=== PATIENT | male | born 1965 | race American Indian/Alaskan Native ===

== ENCOUNTER 2022-01-19 16:26 | Inpatient (IN) | payer BC ==
[2022-01-19] MEDS ORDERED: cloNIDine 0.1 MG TAB PO ONE (17:18)
[2022-01-19 18:02] LABS: Basophils # (Auto) 0.1 K/mm3 (0.0-0.1); Basophils % (Auto) 1.3 % (0.0-1.8); Eosinophils # (Auto) 0.1 K/mm3 (0.0-0.4); Eosinophils % (Auto) 0.7 % (0.0-4.3); Hematocrit 39.3 % (35.5-45.6); Hemoglobin 13.2 gm/dl (11.8-15.2); Lymphocytes # (Auto) 1.3 K/mm3 (1.2-5.4); Lymphocytes % (Auto) 17.2 % (13.4-35.0); Mean Corpuscular HGB Conc 34 % (32-34); Mean Corpuscular Volume 83 fl (84-94); Monocytes # (Auto) 0.7 K/mm3 (0.0-0.8); Monocytes % (Auto) 8.5 % (0.0-7.3); Platelet Count 321 K/mm3 (140-440); Red Blood Count 4.75 M/mm3 (3.65-5.03); Red Cell Distribution Width 15.9 % (13.2-15.2)
[2022-01-19 19:34] LABS: Alanine Aminotransferase 22 units/L (7-56); Albumin 4.6 g/dL (3.9-5); BUN/Creatinine Ratio 19; Blood Urea Nitrogen 21 mg/dL (9-20); Calcium 9.9 mg/dL (8.4-10.2); Hemolysis Index 6
[2022-01-19] MEDS ORDERED: hydrALAZINE 20 MG/1 ML INJ IV ONE (21:21)
--- NOTE | 2022-01-19 21:27 | Emergency Department Report ---
ED General Adult HPI - General Chief complaint: High BP Stated complaint: HBP Time Seen by Provider: 01/19/22 21:20 Source: patient Mode of arrival: Ambulatory Limitations: No Limitations - History of Present Illness Initial comments: Patient is a 56-year-old male presenting to ED with complaint of hypertension. States he went to an outside clinic today to have sutures removed and was noted to have severely elevated blood pressure. He denies any symptoms. Denies history of hypertension. - Related Data Allergies Allergy/AdvReac Type Severity Reaction Status Date / Time No Known Allergies Allergy Verified 01/19/22 16:57 ED Review of Systems ROS: Stated complaint: HBP Other details as noted in HPI Constitutional: denies: chills, fever Respiratory: denies: cough, shortness of breath, wheezing Cardiovascular: denies: chest pain, palpitations Gastrointestinal: denies: abdominal pain, nausea, diarrhea Musculoskeletal: denies: back pain, joint swelling, arthralgia Skin: denies: rash, lesions Neurological: denies: headache, weakness, paresthesias Psychiatric: denies: anxiety, depression ED Past Medical Hx - Past Medical History Previous Medical History?: No - Surgical History Past Surgical History?: No ED Physical Exam - General Limitations: No Limitations General appearance: alert, in no apparent distress - Head Head exam: Present: atraumatic, normocephalic - Eye Eye exam: Present: normal appearance - Respiratory Respiratory exam: Present: normal lung sounds bilaterally. Absent: respiratory distress - Cardiovascular Cardiovascular Exam: Present: regular rate, normal rhythm, normal heart sounds. Absent: systolic murmur, diastolic murmur, rubs, gallop - GI/Abdominal GI/Abdominal exam: Present: soft. Absent: distended, tenderness - Rectal Rectal exam: Present: deferred - Neurological Exam Neurological exam: Present: alert, oriented X3 - Psychiatric Psychiatric exam: Present: normal affect, normal mood - Skin Skin exam: Present: warm, dry, intact, normal color ED Course Vital Signs 01/19/22 01/19/22 01/19/22 16:53 21:37 21:49 Temperature 98.7 F 98.5 F Pulse Rate 102 H 93 H 83 Respiratory 18 17 Rate Blood Pressure 243/120 236/123 Blood Pressure 236/123 [Right] O2 Sat by Pulse 96 97 Oximetry 01/19/22 01/19/22 01/19/22 22:19 22:25 23:04 Temperature Pulse Rate 86 91 H Respiratory 19 Rate Blood Pressure 233/126 Blood Pressure 236/119 [Right] O2 Sat by Pulse 96 96 Oximetry 01/19/22 23:58 Temperature Pulse Rate 86 Respiratory 20 Rate Blood Pressure Blood Pressure 231/139 [Right] O2 Sat by Pulse 96 Oximetry ED Medical Decision Making - Lab Data Result diagrams: 01/19/22 17:23 01/19/22 17:23 - EKG Data -: EKG Interpreted by Me EKG shows normal: sinus rhythm, axis, intervals - EKG Data Interpretation: LVH, other (Early repolarization) - Medical Decision Making Labs grossly unremarkable. Patient given oral clonidine, followed by IV hydralazine and later IV labetalol with no significant change in blood pressure. Cardene drip ordered. Will admit to hospitalist for hypertensive urgency. Critical care attestation.: If time is entered above; I have spent that time in minutes in the direct care of this critically ill patient, excluding procedure time. ED Disposition Clinical Impression: Asymptomatic hypertensive urgency Disposition: ADMITTED INPATIENT Is pt being admited?: Yes Condition: Stable
[2022-01-20] MEDS: niCARdipine 50 MG in SODIUM CHLORIDE 0.9% 250ML 230 ML IV SCH ×2 (00:53→09:08)
[2022-01-20] MEDS ORDERED: MORPHINE 4 MG/1 ML INJ IV PRN (02:10)
[2022-01-20] MEDS ORDERED: MORPHINE 2 MG/1 ML INJ IV PRN (02:10)
[2022-01-20] MEDS ORDERED: ONDANSETRON 4 MG/2 ML INJ IV PRN (02:10)
[2022-01-20] MEDS ORDERED: ACETAMINOPHEN 325 MG TAB PO PRN (02:10)
[2022-01-20] MEDS ORDERED: ALBUTEROL 2.5 MG/3 ML NEBU IH PRN (02:10)
--- NOTE | 2022-01-20 02:16 | History and Physical Report ---
History of Present Illness Date of examination: 01/20/22 Date of admission: 01/20/22 Chief complaint: High blood pressure History of present illness: 56-year-old male with history of hypertension was brought to the emergency room because high blood pressure. Patient states he went to an outside clinic today to have sutures removed and was noted to have severely elevated blood pressure. He denies any symptoms. Patient denied any chest pain no shortness of breath no other complaints. In the emergency room patient is found to have blood pressure of 197/115.Patient given oral clonidine, followed by IV hydralazine and later IV labetalol with no significant change in blood pressure. Cardene drip ordered. We will admit the patient to the ICU overnight. We consult critical care evaluation and order echocardiogram Past History Past Medical History: hypertension Past Surgical History: No surgical history Social history: no significant social history Family history: hypertension Medications and Allergies Allergies Allergy/AdvReac Type Severity Reaction Status Date / Time No Known Allergies Allergy Verified 01/19/22 16:57 Active Meds: Active Medications Nicardipine HCl 50 mg/ Sodium (Chloride) 250 mls @ 25 mls/hr IV TITR ALLY; Protocol Last Admin: 01/20/22 00:53 Dose: 5 mg/hr, 25 mls/hr Review of Systems All systems: negative Constitutional: other (High blood pressure) Exam - Constitutional Vitals: Temp Pulse Resp BP Pulse Ox 98.5 F 73 18 174/95 98 01/19/22 21:37 01/20/22 01:46 01/20/22 01:46 01/20/22 01:46 01/20/22 01:46 General appearance: Present: no acute distress, well-nourished - EENT Eyes: Present: PERRL ENT: hearing intact, clear oral mucosa - Neck Neck: Present: supple, normal ROM - Respiratory Respiratory effort: normal Respiratory: bilateral: CTA - Cardiovascular Heart Sounds: Present: S1 & S2. Absent: rub, click - Extremities Extremities: pulses symmetrical, No edema Peripheral Pulses: within normal limits - Abdominal General gastrointestinal: Present: soft, non-tender, non-distended, normal bowel sounds Male genitourinary: Present: normal - Integumentary Integumentary: Present: clear, warm, dry - Musculoskeletal Musculoskeletal: gait normal, strength equal bilaterally - Psychiatric Psychiatric: appropriate mood/affect, intact judgment & insight - Neurologic Neurologic: CNII-XII intact, moves all extremities HEART Score - HEART Score Troponin: Troponin T < 0.010 ng/mL (0.00-0.029) 01/19/22 17: Results - Labs CBC & Chem 7: 01/19/22 17:23 01/19/22 17: Labs: Laboratory Last Values WBC 7.8 K/mm3 (4.5-11.0) 01/19/22 17: RBC 4.75 M/mm3 (3.65-5.03) 01/19/22 17: Hgb 13.2 gm/dl (11.8-15.2) 01/19/22: Hct 39.3 % (35.5-45.6) 01/19/22: MCV 83 fl (84-94) L 01/19/22 17: MCH 28 pg (28-32) 01/19/22: MCHC 34 % (32-34) 01/19/22: RDW 15.9 % (13.2-15.2) H 01/19/22 17: Plt Count 321 K/mm3 (140-440) 01/19/22 17: Lymph % (Auto) 17.2 % (13.4-35.0) 01/19/22: [place] % (Auto) 8.5 % (0.0-7.3) H 01/19/22: Eos % (Auto) 0.7 % (0.0-4.3) 01/19/22: Baso % (Auto) 1.3 % (0.0-1.8) 01/19/22 17: Lymph # (Auto) 1.3 K/mm3 (1.2-5.4) 01/19/22 17: [place] # (Auto) 0.7 K/mm3 (0.0-0.8) 01/19/22: Eos # (Auto) 0.1 K/mm3 (0.0-0.4) 01/19/22 17: Baso # (Auto) 0.1 K/mm3 (0.0-0.1) 01/19/22: Seg Neutrophils % 72.3 % (40.0-70.0) H 01/19/22 17:23 Seg Neutrophils # 5.6 K/mm3 (1.8-7.7) 01/19/22 17:23 Sodium 138 mmol/L (137-145) 01/19/22 17:23 Potassium 4.5 mmol/L (3.6-5.0) 01/19/22 17:23 Chloride 102.4 mmol/L (98-107) 01/19/22 17:23 Carbon Dioxide 23 mmol/L (22-30) 01/19/22 17:23 Anion Gap 17 mmol/L 01/19/22 17:23 BUN 21 mg/dL (9-20) H 01/19/22 17:23 Creatinine 1.1 mg/dL (0.8-1.3) 01/19/22 17:23 Estimated GFR > 60 ml/min 01/19/22 17:23 BUN/Creatinine Ratio 19 % 01/19/22 17:23 Glucose 167 mg/dL (75-100) H 01/19/22 17:23 Calcium 9.9 mg/dL (8.4-10.2) 01/19/22 17:23 Total Bilirubin 0.20 mg/dL (0.1-1.2) 01/19/22 17:23 AST 19 units/L (5-40) 01/19/22 17:23 ALT 22 units/L (7-56) 01/19/22 17:23 Alkaline Phosphatase 160 units/L (35-129) H 01/19/22 17:23 Troponin T < 0.010 ng/mL (0.00-0.029) 01/19/22 17:23 Total Protein 7.2 g/dL (6.3-8.2) 01/19/22 17:23 Albumin 4.6 g/dL (3.9-5) 01/19/22 17:23 Albumin/Globulin Ratio 1.8 % 01/19/22 17:23 Assessment and Plan VTE prophylaxis?: Mechanical Plan of care discussed with patient/family: Yes - Patient Problems (1) Asymptomatic hypertensive urgency Status: Acute Plan to address problem: Admit the patient to ICU. Cardiac diet.Patient given oral clonidine, followed by IV hydralazine and later IV labetalol with no significant change in blood pressure. Cardene drip ordered. Echocardiogram. Critical care evaluation. Consult cardiology if needed (2) Obesity Status: Acute Plan to address problem: We counseled the patient regarding weight reduction. We will monitor the patient closely (3) DVT prophylaxis Status: Acute Plan to address problem: SCD for DVT prophylaxis. Pepcid 20 mg p.o. twice daily for GI prophylaxis. Patient is a full code
[2022-01-20] MEDS ORDERED: IPRATROPIUM/ALBUTEROL SULFATE 3 ML AMPUL.NEB IH SCH (08:00)
[2022-01-20] MEDS: hydroCHLOROthiazide 25 MG TAB PO SCH (09:21)
[2022-01-20] MEDS: FAMOTIDINE 20 MG TAB PO SCH ×2 (09:21→21:15)
[2022-01-20] MEDS: amLODIPine 10 MG TAB PO SCH (09:21)
--- NOTE | 2022-01-20 11:18 | Consultation ---
History of Present Illness - Reason for Consult Consult date: 01/20/22 - History of Present Illness 56 y/o, obese male, admitted last evening with hypertensive urgency. patient had stitches to a digit and went to get those removed. When they did, they checked his bp and it was elevated so they asked him to come to the hospital. He denies any headache, chest pain, blurred vision, nausea or vomiting. He was unaware that he had elevated bp. Remainder of the review is negative. Past History Past Medical History: hypertension Past Surgical History: No surgical history Social history: no significant social history Family history: hypertension Medications and Allergies Allergies Allergy/AdvReac Type Severity Reaction Status Date / Time No Known Allergies Allergy Verified 01/19/22 16:57 Active Meds: Active Medications Acetaminophen (Acetaminophen 325 Mg Tab) 650 mg PO Q4H PRN PRN Reason: Pain MILD(1-3)/Fever >100.5/[place] Amlodipine Besylate (Amlodipine 10 Mg Tab) 10 mg PO QDAY [facility] Last Admin: 01/20/22 09:21 Dose: 10 mg Clonidine HCl (Clonidine 0.1 Mg Tab) 0.1 mg PO Q12HR ALLY Famotidine (Famotidine 20 Mg Tab) 20 mg PO BID [facility] Last Admin: 01/20/22 09:21 Dose: 20 mg Hydralazine HCl (Hydralazine 20 Mg/1 Ml Inj) 20 mg IV Q4HR PRN PRN Reason: Hypertension Hydrochlorothiazide (Hydrochlorothiazide 25 Mg Tab) 25 mg PO QDAY [facility] Last Admin: 01/20/22 09:21 Dose: 25 mg Nicardipine HCl 50 mg/ Sodium (Chloride) 250 mls @ 25 mls/hr IV TITR ALLY; Protocol Last Titration: 01/20/22 10:06 Dose: 7.5 mg/hr, 37.5 mls/hr Ondansetron HCl (Ondansetron 4 Mg/2 Ml Inj) 4 mg IV Q8H PRN PRN Reason: Nausea And Vomiting Sodium Chloride (Sodium Chloride 0.9% 10 Ml Flush Syringe) 10 ml IV BID [facility] Last Admin: 01/20/22 09:22 Dose: 10 ml Sodium Chloride (Sodium Chloride 0.9% 10 Ml Flush Syringe) 10 ml IV PRN PRN PRN Reason: LINE FLUSH Review of Systems All systems: negative Exam - Constitutional Vitals: Temp Pulse Resp BP Pulse Ox 97.8 F 77 17 163/86 96 01/20/22 08:38 01/20/22 10:44 01/20/22 10:44 01/20/22 10:44 01/20/22 10:44 General appearance: Present: no acute distress, well-nourished, obese - EENT Eyes: Present: PERRL, EOM intact ENT: hearing intact, clear oral mucosa, dentition normal - Neck Neck: Present: supple, normal ROM - Respiratory Respiratory effort: normal Respiratory: bilateral: CTA - Cardiovascular Rhythm: regular Heart Sounds: Present: S1 & S2 - Extremities Extremities: no ischemia, pulses intact, pulses symmetrical - Abdominal General gastrointestinal: Present: soft, non-tender Male genitourinary: Present: deferred - Rectal Rectal Exam: deferred - Musculoskeletal Musculoskeletal: strength equal bilaterally - Psychiatric Psychiatric: appropriate mood/affect - Neurologic Neurologic: CNII-XII intact Results - Labs CBC & Chem 7: 01/19/22 17:23 01/19/22 17:23 Labs: Abnormal lab results 01/19/22 01/19/22 Range/Units 17:23 17:23 MCV 83 L (84-94) fl RDW 15.9 H (13.2-15.2) % [place] % (Auto) 8.5 H (0.0-7.3) % Seg Neutrophils % 72.3 H (40.0-70.0) % BUN 21 H (9-20) mg/dL Glucose 167 H (75-100) mg/dL Alkaline Phosphatase 160 H (35-129) units/L Assessment and Plan 55 y/o male with newly diagnosed hypertension. 1. Agree with HCTZ and Amlodipine. Since patient got clonidine in ED will continue now. Changed the parameters on cardene to systolics of 180. Don't want to drop patient to low to fast. Once off drip, can transfer to floor. Discussed with patient the importance of obtaining a PCP. Consider referral to Dr. Blunt
--- NOTE | 2022-01-20 11:51 | Electrocardiograph Report ---
[facility] Test Date: 2022-01-19 Test Time: 17:08:00 Pat Name: ELLA GUARDADO Department: Room: A254 1 Gender: M District Manager Postal Service: DENIZ : 1965 Requested By: JULIANNA PEPE Order Number: [id number] Reading MD: Sudarshan Mon Measurements Intervals [place] Rate: 97 P: 66 VT: 170 QRS: 11 QRSD: 93 T: 83 QT: 381 QTc: 485 Interpretive Statements Sinus rhythm Consider left ventricular hypertrophy Nonspecific T abnormalities, lateral leads ST elev, probable normal early repol pattern No previous ECG available for comparison Electronically Signed On 01-20-2022 11:51:38 EDT by Sudarshan Mon
[2022-01-20] MEDS: cloNIDine 0.1 MG TAB PO SCH ×2 (12:16→21:16)
--- NOTE | 2022-01-20 12:17 | Event Note ---
<STEF VALENCIA - Last Filed: 01/20/22 12:17> Date: 01/20/22 This is is a 56-year-old male with no medical history who presented to the emergency department on 01/19 after being seen at outside clinic to have the sutures removed from his digit where they found severely elevated blood pressure. On arrival to the emergency department blood pressures recorded at 243/120 and patient was given p.o. clonidine, IV hydralazine, IV labetalol and was started on a Cardene drip. Patient was admitted to the hospital service with hypertensive urgency and newly diagnosed hypertension to the ICU with consults to [facility]. Hospital course to date: 01/20: Patient started on p.o. hydrochlorothiazide and amlodipine. As patient was given clonidine in the ED [facility] suggested to add clonidine 0.1 mg twice daily. Parameters were changed for Cardene to systolic goal of 180. Hemoglobin A1c pending. This is a 56-year-old male with no diagnosed hypertension admitted with hypertensive urgency Neuro: NAD -Reorientation as needed -Maintain sleep-wake cycle -As needed analgesia Cardiac: Hypertensive urgency, newly diagnosed hypertension -CCM consulted, appreciate recommendation -Presented with a blood pressure of 243/120 -S/p IV Lopressor, p.o. amlodipine, IV hydralazine in the ED -Currently on a Cardene drip -Started on p.o. hydrochlorothiazide, amlodipine and clonidine -Blood pressure monitoring per protocol -Hydralazine as needed Respiratory: NAD -Currently on room air -Supplemental oxygen as needed -SPO2 monitor per protocol -Pulmonary hygiene GI: Obesity -Cardiac diet -Encouraged lifestyle and dietary modifications outpatient : NAD -Monitor intake and output -Renally dose medications -Avoid nephrotoxic medications ID: NAD -Monitor WBC and temperature curve Endo: NAD -Hemoglobin A1c 5.5 -Avoid hypoglycemia Heme: NAD -Trend CBC -Transfuse hemoglobin less than 7 -SCDs to BLE while in bed The high probability of a clinically significant, sudden or life threatening deterioration of the [cardio] system(s) required my full and direct attention, intervention and personal management. The aggregate critical care time was [60] minutes. This time is in addition to time spent performing reported procedures but includes the following: [x] Data Review and interpretation [x] Patient assessment and monitoring of vital signs [x] Documentation [x] Medication orders and management <OKEH,MIMI E - Last Filed: 01/21/22 07:16> I saw and evaluated the patient. I agree with the findings and the plan of care as documented in the Nurse Practitioner's~note, with the following corrections and additions.
[2022-01-21] MEDS: hydrALAZINE 20 MG/1 ML INJ IV PRN ×2 (06:37→17:46)
[2022-01-21 07:09] LABS: Basophils # (Auto) 0.1 K/mm3 (0.0-0.1); Basophils % (Auto) 1.2 % (0.0-1.8); Eosinophils # (Auto) 0.1 K/mm3 (0.0-0.4); Eosinophils % (Auto) 1.8 % (0.0-4.3); Hematocrit 40.4 % (35.5-45.6); Hemoglobin 13.5 gm/dl (11.8-15.2); Lymphocytes # (Auto) 1.8 K/mm3 (1.2-5.4); Lymphocytes % (Auto) 25.2 % (13.4-35.0); Mean Corpuscular HGB Conc 34 % (32-34); Mean Corpuscular Volume 83 fl (84-94); Monocytes # (Auto) 0.8 K/mm3 (0.0-0.8); Monocytes % (Auto) 11.1 % (0.0-7.3); Platelet Count 296 K/mm3 (140-440); Red Blood Count 4.85 M/mm3 (3.65-5.03); Red Cell Distribution Width 16.4 % (13.2-15.2)
[2022-01-21 07:23] LABS: BUN/Creatinine Ratio 15; Blood Urea Nitrogen 16 mg/dL (9-20); Calcium 9.6 mg/dL (8.4-10.2); Hemolysis Index 0
--- NOTE | 2022-01-21 07:37 | Progress Note ---
Assessment and Plan Assessment and plan: This is is a 56-year-old male with no medical history who presented to the emergency department on 01/19 after being seen at outside clinic to have the sutures removed from his digit where they found severely elevated blood pressure. On arrival to the emergency department blood pressures recorded at 243/120 and patient was given p.o. clonidine, IV hydralazine, IV labetalol and was started on a Cardene drip. Patient was admitted to the hospital service with hypertensive urgency and newly diagnosed hypertension to the ICU with consults to [facility]. Hospital course to date: 01/20: Patient started on p.o. hydrochlorothiazide and amlodipine. As patient was given clonidine in the ED CCM suggested to add clonidine 0.1 mg twice daily. Parameters were changed for Cardene to systolic goal of 180. Hemoglobin A1c pending. 01/21: Patient remains with elevated blood pressure systolic 184 diastolic around 111. We will add Diovan 160 mg twice daily to the patient's medication. Discussed with nursing staff to monitor his blood pressure. If persistently elevated may need to start him on hydralazine and discontinue the clonidine and use of as needed. I did give him counseling due to his tobacco use he reports understanding and will quit. 50 minutes counseling provided This is a 56-year-old male with no diagnosed hypertension admitted with hypertensive urgency Neuro: NAD -Reorientation as needed -Maintain sleep-wake cycle -As needed analgesia Cardiac: Hypertensive urgency, newly diagnosed hypertension -CCM consulted, appreciate recommendation -Presented with a blood pressure of 243/120 -S/p IV Lopressor, p.o. amlodipine, IV hydralazine in the ED -Currently on a Cardene drip -Started on p.o. hydrochlorothiazide, amlodipine and clonidine -Blood pressure monitoring per protocol -Hydralazine as needed Respiratory: NAD, tobacco use disorder -Currently on room air -Supplemental oxygen as needed -SPO2 monitor per protocol -Pulmonary hygiene -Counseling provided GI: Obesity -Cardiac diet -Encouraged lifestyle and dietary modifications outpatient : NAD -Monitor intake and output -Renally dose medications -Avoid nephrotoxic medications ID: NAD -Monitor WBC and temperature curve Endo: NAD -Hemoglobin A1c 5.5 -Avoid hypoglycemia Heme: NAD -Trend CBC -Transfuse hemoglobin less than 7 -SCDs to BLE while in bed History Interval history: Patient seen and examined this morning sitting up no acute distress. Denies any chest pain nausea vomiting states has been a long time since has been to the doctor. Hospitalist Physical - Physical exam Narrative exam: VITAL SIGNS: Reviewed. GENERAL: The patient appears normally developed, Vital signs as documented. HEAD: No signs of head trauma. EYES: Pupils are equal. Extraocular motions intact. EARS: Hearing grossly intact. MOUTH: Oropharynx is normal. NECK: No adenopathy, no JVD. CHEST: Chest with clear breath sounds bilaterally. No wheezes, rales, or rhonchi. CARDIAC: Regular rate and rhythm. S1 and S2, without murmurs, gallops, or rubs. VASCULAR: No Edema. Peripheral pulses normal and equal in all extremities. ABDOMEN: Soft, non tender and non distended. No rebound or guarding, and no masses palpated. Bowel Sounds normal. MUSCULOSKELETAL: Good range of motion of all major joints. Extremities without clubbing, cyanosis or edema. NEUROLOGIC EXAM: Alert and oriented x 3 No focal sensory or strength deficits. Speech normal. Follows commands. PSYCHIATRIC: Mood normal. SKIN: detail exam as documented in skin assessment - Constitutional Vitals: Temp Pulse Resp BP Pulse Ox 99.3 F 81 18 185/114 94 01/20/22 20:11 01/21/22 06:10 01/21/22 06:10 01/21/22 06:37 01/21/22 06:10 General appearance: Present: no acute distress, well-nourished, obese HEART Score - HEART Score Troponin: Troponin T < 0.010 ng/mL (0.00-0.029) 01/19/22 17:23 Results - Labs CBC & Chem 7: 01/21/22 06:01 01/21/22 06:01 Labs: Laboratory Last Values WBC 7.1 K/mm3 (4.5-11.0) 01/21/22 06:01 RBC 4.85 M/mm3 (3.65-5.03) 01/21/22 06:01 Hgb 13.5 gm/dl (11.8-15.2) 01/21/22 06:01 Hct 40.4 % (35.5-45.6) 01/21/22 06:01 MCV 83 fl (84-94) L 01/21/22 06:01 MCH 28 pg (28-32) 01/21/22 06:01 MCHC 34 % (32-34) 01/21/22 06:01 RDW 16.4 % (13.2-15.2) H 01/21/22 06:01 Plt Count 296 K/mm3 (140-440) 01/21/22 06:01 Lymph % (Auto) 25.2 % (13.4-35.0) 01/21/22 06:01 [place] % (Auto) 11.1 % (0.0-7.3) H 01/21/22 06:01 Eos % (Auto) 1.8 % (0.0-4.3) 01/21/22 06:01 Baso % (Auto) 1.2 % (0.0-1.8) 01/21/22 06:01 Lymph # (Auto) 1.8 K/mm3 (1.2-5.4) 01/21/22 06:01 [place] # (Auto) 0.8 K/mm3 (0.0-0.8) 01/21/22 06:01 Eos # (Auto) 0.1 K/mm3 (0.0-0.4) 01/21/22 06:01 Baso # (Auto) 0.1 K/mm3 (0.0-0.1) 01/21/22 06:01 Seg Neutrophils % 60.7 % (40.0-70.0) 01/21/22 06:01 Seg Neutrophils # 4.3 K/mm3 (1.8-7.7) 01/21/22 06:01 Sodium 138 mmol/L (137-145) 01/21/22 06:01 Potassium 4.4 mmol/L (3.6-5.0) 01/21/22 06:01 Chloride 102.7 mmol/L (98-107) 01/21/22 06:01 Carbon Dioxide 24 mmol/L (22-30) 01/21/22 06:01 Anion Gap 16 mmol/L 01/21/22 06:01 BUN 16 mg/dL (9-20) 01/21/22 06:01 Creatinine 1.1 mg/dL (0.8-1.3) 01/21/22 06:01 Estimated GFR > 60 ml/min 01/21/22 06:01 BUN/Creatinine Ratio 15 % 01/21/22 06:01 Glucose 125 mg/dL (75-100) H 01/21/22 06:01 Hemoglobin A1c 5.5 % (4-6) 01/20/22 10:07 Calcium 9.6 mg/dL (8.4-10.2) 01/21/22 06:01 Total Bilirubin 0.20 mg/dL (0.1-1.2) 01/19/22 17:23 AST 19 units/L (5-40) 01/19/22 17:23 ALT 22 units/L (7-56) 01/19/22 17:23 Alkaline Phosphatase 160 units/L (35-129) H 01/19/22 17:23 Troponin T < 0.010 ng/mL (0.00-0.029) 01/19/22 17:23 Total Protein 7.2 g/dL (6.3-8.2) 01/19/22 17:23 Albumin 4.6 g/dL (3.9-5) 01/19/22 17:23 Albumin/Globulin Ratio 1.8 % 01/19/22 17:23 [place]/IV: Voiding Method Toilet Active Medications - Current Medications Current Medications: Generic Name Dose Route Start Last Admin Trade Name Freq PRN Reason Stop Dose Admin Acetaminophen 650 mg 01/20/22 02:10 Acetaminophen 325 Mg Tab PO Q4H PRN Pain MILD(1-3)/Fever >100.5/[place] Amlodipine Besylate 10 mg 01/20/22 10:00 01/20/22 09:21 Amlodipine 10 Mg Tab PO 10 mg QDAY ALLY Administration Clonidine HCl 0.1 mg 01/20/22 11:00 01/20/22 21:16 Clonidine 0.1 Mg Tab PO 0.1 mg Q12HR ALLY Administration Famotidine 20 mg 01/20/22 10:00 01/20/22 21:15 Famotidine 20 Mg Tab PO 20 mg BID ALLY Administration Hydralazine HCl 20 mg 01/20/22 07:37 01/21/22 06:37 Hydralazine 20 Mg/1 Ml Inj IV 20 mg Q4HR PRN Administration Hypertension Hydrochlorothiazide 25 mg 01/20/22 10:00 01/20/22 09:21 Hydrochlorothiazide 25 Mg Tab PO 25 mg QDAY ALLY Administration Ondansetron HCl 4 mg 01/20/22 02:10 Ondansetron 4 Mg/2 Ml Inj IV Q8H PRN Nausea And Vomiting Sodium Chloride 10 ml 01/20/22 10:00 01/20/22 21:16 Sodium Chloride 0.9% 10 Ml Flush Syringe IV 10 ml BID ALLY Administration Sodium Chloride 10 ml 01/20/22 02:10 01/21/22 06:37 Sodium Chloride 0.9% 10 Ml Flush Syringe IV 10 ml PRN PRN Administration LINE FLUSH Valsartan 160 mg 01/21/22 10:00 Valsartan 160mg Tab PO BID ALLY
[2022-01-21] MEDS: cloNIDine 0.1 MG TAB PO SCH ×2 (10:17→21:14)
[2022-01-21] MEDS: FAMOTIDINE 20 MG TAB PO SCH ×2 (10:17→21:15)
[2022-01-21] MEDS: VALSARTAN 160MG TAB PO SCH ×2 (10:17→21:14)
[2022-01-21] MEDS: hydroCHLOROthiazide 25 MG TAB PO SCH (10:18)
[2022-01-21] MEDS: amLODIPine 10 MG TAB PO SCH (10:18)
--- NOTE | 2022-01-22 07:44 | Progress Note ---
Assessment and Plan Assessment and plan: HPI: This is is a 56-year-old male with no medical history who presented to the emergency department on 01/19 after being seen at outside clinic to have the sutures removed from his digit where they found severely elevated blood pressure. On arrival to the emergency department blood pressures recorded at 243/120 and patient was given p.o. clonidine, IV hydralazine, IV labetalol and was started on a Cardene drip. Patient was admitted to the hospital service with hypertensive urgency and newly diagnosed hypertension to the ICU with consults to [facility]. Hospital course to date: 01/20: Patient started on p.o. hydrochlorothiazide and amlodipine. As patient was given clonidine in the ED CCM suggested to add clonidine 0.1 mg twice daily. Parameters were changed for Cardene to systolic goal of 180. Hemoglobin A1c pending. 01/21: Patient remains with elevated blood pressure systolic 184 diastolic around 111. We will add Diovan 160 mg twice daily to the patient's medication. Discussed with nursing staff to monitor his blood pressure. If persistently elevated may need to start him on hydralazine and discontinue the clonidine and use of as needed. I did give him counseling due to his tobacco use he reports understanding and will quit. 50 minutes counseling provided 01/22: Blood pressure control continues to be a challenge. 180/100 this Am. Addition of labetalol 100 mg p.o. 3 times daily. Catapres increased to 0.2 mg twice daily. If sufficient control obtained by afternoon will discharge patient. A&P: This is a 56-year-old male with no diagnosed hypertension admitted with hypertensive urgency Neuro: NAD -Reorientation as needed -Maintain sleep-wake cycle -As needed analgesia Cardiac: Hypertensive urgency, newly diagnosed hypertension, resistant hypertension -CCM consulted, appreciate recommendation -Presented with a blood pressure of 243/120 -S/p IV Lopressor, p.o. amlodipine, IV hydralazine in the ED -s/p Cardene drip -Started on p.o. hydrochlorothiazide, amlodipine, labetalol, valsartan and clonidine -Blood pressure monitoring per protocol -Hydralazine as needed Respiratory: NAD, tobacco use disorder -Currently on room air -Supplemental oxygen as needed -SPO2 monitor per protocol -Pulmonary hygiene -Counseling provided GI: Obesity -Cardiac diet -Encouraged lifestyle and dietary modifications outpatient : NAD -Monitor intake and output -Renally dose medications -Avoid nephrotoxic medications ID: NAD -Monitor WBC and temperature curve Endo: NAD -Hemoglobin A1c 5.5 -Avoid hypoglycemia Heme: NAD -Trend CBC -Transfuse hemoglobin less than 7 -SCDs to BLE while in bed #Advance care planning Disease education conducted, care plan discussed, diagnoses discussed, prognosis discussed, patient is full code, patient acknowledges understanding and agree with care plan, +30 minutes. Time spent: +35 min CPT 65806 History Interval history: Patient seen evaluated bedside encounter. No acute complaints this AM. Discussed care plan for today and potential for discharge if blood pressure control sufficient. Hospitalist Physical - Physical exam Narrative exam: Physical Exam: VITAL SIGNS: Reviewed. GENERAL: The patient appears normally developed, Vital signs as documented. HEAD: No signs of head trauma. EYES: Pupils are equal. Extraocular motions intact. EARS: Hearing grossly intact. MOUTH: Oropharynx is normal. NECK: No adenopathy, no JVD. CHEST: Chest with clear breath sounds bilaterally. No wheezes, rales, or rhonchi. CARDIAC: Regular rate and rhythm. S1 and S2, without murmurs, gallops, or rubs. VASCULAR: No Edema. Peripheral pulses normal and equal in all extremities. ABDOMEN: Soft, non tender and non distended. No rebound or guarding, and no masses palpated. Bowel Sounds normal. MUSCULOSKELETAL: Good range of motion of all major joints. Extremities without clubbing, cyanosis or edema. NEUROLOGIC EXAM: Alert and oriented x 4. no focal sensory or strength deficits. PSYCHIATRIC: Mood normal. SKIN: detail exam as documented in skin assessment - Constitutional Vitals: Temp Pulse Resp BP Pulse Ox 98.4 F 85 12 156/97 96 01/22/22 04:39 01/22/22 04:39 01/22/22 04:39 01/22/22 04:39 01/22/22 04:39 General appearance: Present: no acute distress, well-nourished, obese HEART Score - HEART Score Troponin: Troponin T < 0.010 ng/mL (0.00-0.029) 01/19/22 17:23 Results - Labs CBC & Chem 7: 01/21/22 06:01 01/21/22 06:01 Labs: Laboratory Last Values WBC 7.1 K/mm3 (4.5-11.0) 01/21/22 06:01 RBC 4.85 M/mm3 (3.65-5.03) 01/21/22 06:01 Hgb 13.5 gm/dl (11.8-15.2) 01/21/22 06:01 Hct 40.4 % (35.5-45.6) 01/21/22 06:01 MCV 83 fl (84-94) L 01/21/22 06:01 MCH 28 pg (28-32) 01/21/22 06:01 MCHC 34 % (32-34) 01/21/22 06:01 RDW 16.4 % (13.2-15.2) H 01/21/22 06:01 Plt Count 296 K/mm3 (140-440) 01/21/22 06:01 Lymph % (Auto) 25.2 % (13.4-35.0) 01/21/22 06:01 Ida % (Auto) 11.1 % (0.0-7.3) H 01/21/22 06:01 Eos % (Auto) 1.8 % (0.0-4.3) 01/21/22 06:01 Baso % (Auto) 1.2 % (0.0-1.8) 01/21/22 06:01 Lymph # (Auto) 1.8 K/mm3 (1.2-5.4) 01/21/22 06:01 Ida # (Auto) 0.8 K/mm3 (0.0-0.8) 01/21/22 06:01 Eos # (Auto) 0.1 K/mm3 (0.0-0.4) 01/21/22 06:01 Baso # (Auto) 0.1 K/mm3 (0.0-0.1) 01/21/22 06:01 Seg Neutrophils % 60.7 % (40.0-70.0) 01/21/22 06:01 Seg Neutrophils # 4.3 K/mm3 (1.8-7.7) 01/21/22 06:01 Sodium 138 mmol/L (137-145) 01/21/22 06:01 Potassium 4.4 mmol/L (3.6-5.0) 01/21/22 06:01 Chloride 102.7 mmol/L (98-107) 01/21/22 06:01 Carbon Dioxide 24 mmol/L (22-30) 01/21/22 06:01 Anion Gap 16 mmol/L 01/21/22 06:01 BUN 16 mg/dL (9-20) 01/21/22 06:01 Creatinine 1.1 mg/dL (0.8-1.3) 01/21/22 06:01 Estimated GFR > 60 ml/min 01/21/22 06:01 BUN/Creatinine Ratio 15 % 01/21/22 06:01 Glucose 125 mg/dL (75-100) H 01/21/22 06:01 Hemoglobin A1c 5.5 % (4-6) 01/20/22 10:07 Calcium 9.6 mg/dL (8.4-10.2) 01/21/22 06:01 Total Bilirubin 0.20 mg/dL (0.1-1.2) 01/19/22 17:23 AST 19 units/L (5-40) 01/19/22 17:23 ALT 22 units/L (7-56) 01/19/22 17:23 Alkaline Phosphatase 160 units/L (35-129) H 01/19/22 17:23 Troponin T < 0.010 ng/mL (0.00-0.029) 01/19/22 17:23 Total Protein 7.2 g/dL (6.3-8.2) 01/19/22 17:23 Albumin 4.6 g/dL (3.9-5) 01/19/22 17:23 Albumin/Globulin Ratio 1.8 % 01/19/22 17:23 TSH 1.460 mlU/mL (0.270-4.200) 01/21/22 06:01 Castillo/IV: Voiding Method Toilet Active Medications - Current Medications Current Medications: Generic Name Dose Route Start Last Admin Trade Name Freq PRN Reason Stop Dose Admin Acetaminophen 650 mg 01/20/22 02:10 Acetaminophen 325 Mg Tab PO Q4H PRN Pain MILD(1-3)/Fever >100.5/ATKINSON Amlodipine Besylate 10 mg 01/20/22 10:00 01/21/22 10:18 Amlodipine 10 Mg Tab PO 10 mg QDAY ALLY Administration Clonidine HCl 0.1 mg 01/20/22 11:00 01/21/22 21:14 Clonidine 0.1 Mg Tab PO 0.1 mg Q12HR ALLY Administration Famotidine 20 mg 01/20/22 10:00 01/21/22 21:15 Famotidine 20 Mg Tab PO 20 mg BID ALLY Administration Hydralazine HCl 20 mg 01/20/22 07:37 01/21/22 17:46 Hydralazine 20 Mg/1 Ml Inj IV 20 mg Q4HR PRN Administration Hypertension Hydralazine HCl 100 mg 01/22/22 08:00 Hydralazine 100 Mg Tab PO TID ALLY Hydrochlorothiazide 25 mg 01/20/22 10:00 01/21/22 10:18 Hydrochlorothiazide 25 Mg Tab PO 25 mg QDAY ALLY Administration Ondansetron HCl 4 mg 01/20/22 02:10 Ondansetron 4 Mg/2 Ml Inj IV Q8H PRN Nausea And Vomiting Sodium Chloride 10 ml 01/20/22 10:00 01/21/22 21:15 Sodium Chloride 0.9% 10 Ml Flush Syringe IV 10 ml BID ALLY Administration Sodium Chloride 10 ml 01/20/22 02:10 01/21/22 06:37 Sodium Chloride 0.9% 10 Ml Flush Syringe IV 10 ml PRN PRN Administration LINE FLUSH Valsartan 160 mg 01/21/22 10:00 01/21/22 21:14 Valsartan 160mg Tab PO 160 mg BID ALLY Administration
[2022-01-22] MEDS ORDERED: hydrALAZINE 100 MG TAB PO SCH (08:00)
[2022-01-22] MEDS: FAMOTIDINE 20 MG TAB PO SCH ×2 (10:07→22:53)
[2022-01-22] MEDS: VALSARTAN 160MG TAB PO SCH ×2 (10:07→22:53)
[2022-01-22] MEDS: cloNIDine 0.1 MG TAB PO SCH (10:07)
[2022-01-22] MEDS: hydroCHLOROthiazide 25 MG TAB PO SCH (10:08)
[2022-01-22] MEDS: amLODIPine 10 MG TAB PO SCH (10:08)
[2022-01-22] MEDS ORDERED: cloNIDine 0.1 MG TAB PO SCH (12:28)
[2022-01-22] MEDS ORDERED: cloNIDine 0.1 MG TAB PO ONE (13:00)
--- NOTE | 2022-01-22 19:39 | Discharge Summary ---
Providers - Providers Date of Admission: 01/20/22 02:10 Attending physician: PABLITO AARON MD Primary care physician: CHAS CARPIO Hospitalization Reason for admission: high blood pressure Condition: Stable Hospital course: HPI: This is is a 56-year-old male with no medical history who presented to the emergency department on 01/19 after being seen at outside clinic to have the sutures removed from his digit where they found severely elevated blood pressure. On arrival to the emergency department blood pressures recorded at 243/120 and patient was given p.o. clonidine, IV hydralazine, IV labetalol and was started on a Cardene drip. Patient was admitted to the hospital service with hypertensive urgency and newly diagnosed hypertension to the ICU with consults to [facility]. Hospital course to date: 01/20: Patient started on p.o. hydrochlorothiazide and amlodipine. As patient was given clonidine in the ED [facility] suggested to add clonidine 0.1 mg twice daily. Parameters were changed for Cardene to systolic goal of 180. Hemoglobin A1c pending. 01/21: Patient remains with elevated blood pressure systolic 184 diastolic around 111. We will add Diovan 160 mg twice daily to the patient's medication. Discussed with nursing staff to monitor his blood pressure. If persistently elevated may need to start him on hydralazine and discontinue the clonidine and use of as needed. I did give him counseling due to his tobacco use he reports understanding and will quit. 50 minutes counseling provided 01/22: Blood pressure control continues to be a challenge. 180/100 this Am. Addition of labetalol 100 mg p.o. 3 times daily. Catapres increased to 0.2 mg twice daily. If sufficient control obtained by afternoon will discharge patient. Blood pressure optimized, 140/80's. acceptable for discharge. rx for catapres, amlodipine, labetalol, hctz, valsaratan transmitted to pharmacy. A&P: This is a 56-year-old male with no diagnosed hypertension admitted with hypertensive urgency Neuro: NAD -Reorientation as needed -Maintain sleep-wake cycle -As needed analgesia Cardiac: Hypertensive urgency, newly diagnosed hypertension, resistant hypertension -CCM consulted, appreciate recommendation -Presented with a blood pressure of 243/120 -S/p IV Lopressor, p.o. amlodipine, IV hydralazine in the ED -s/p Cardene drip -Started on p.o. hydrochlorothiazide, amlodipine, labetalol, valsartan and clonidine -Blood pressure monitoring per protocol -Hydralazine as needed Respiratory: NAD, tobacco use disorder -Currently on room air -Supplemental oxygen as needed -SPO2 monitor per protocol -Pulmonary hygiene -Counseling provided GI: Obesity -Cardiac diet -Encouraged lifestyle and dietary modifications outpatient : NAD -Monitor intake and output -Renally dose medications -Avoid nephrotoxic medications ID: NAD -Monitor WBC and temperature curve Endo: NAD -Hemoglobin A1c 5.5 -Avoid hypoglycemia Heme: NAD -Trend CBC -Transfuse hemoglobin less than 7 -SCDs to BLE while in bed #Advance care planning Disease education conducted, care plan discussed, diagnoses discussed, prognosis discussed, patient is full code, patient acknowledges understanding and agree with care plan, +30 minutes. Disposition: HOME / SELF CARE / HOMELESS Final Discharge Diagnosis (Prints w/discharge instructions): 35 Time spent for discharge: hypertensive urgency Core Measure Documentation - Palliative Care Palliative Care/ Comfort Measures: Not Applicable - Core Measures Any of the following diagnoses?: none Exam - Physical Exam Narrative exam: Physical Exam: VITAL SIGNS: Reviewed. GENERAL: The patient appears normally developed, Vital signs as documented. HEAD: No signs of head trauma. EYES: Pupils are equal. Extraocular motions intact. EARS: Hearing grossly intact. MOUTH: Oropharynx is normal. NECK: No adenopathy, no JVD. CHEST: Chest with clear breath sounds bilaterally. No wheezes, rales, or rhonchi. CARDIAC: Regular rate and rhythm. S1 and S2, without murmurs, gallops, or rubs. VASCULAR: No Edema. Peripheral pulses normal and equal in all extremities. ABDOMEN: Soft, non tender and non distended. No rebound or guarding, and no masses palpated. Bowel Sounds normal. MUSCULOSKELETAL: Good range of motion of all major joints. Extremities without clubbing, cyanosis or edema. NEUROLOGIC EXAM: Alert and oriented x 4. no focal sensory or strength deficits. PSYCHIATRIC: Mood normal. SKIN: detail exam as documented in skin assessment - Constitutional Vitals: Temp Pulse Resp BP Pulse Ox 97.6 F 75 18 145/88 97 01/22/22 16:33 01/22/22 16:33 01/22/22 16:33 01/22/22 16:33 01/22/22 16:33 Plan Follow up with: CHAS CARPIO MD [Primary Care Provider] - 7 Days Prescriptions: amLODIPine 10 mg PO QDAY 30 Days #30 tablet cloNIDine [Catapres] 0.2 mg PO Q12HR 30 Days #60 tablet Valsartan [Diovan] 160 mg PO BID 30 Days #60 tablet hydroCHLOROthiazide [HCTZ] 25 mg PO QDAY 30 Days #30 tablet labetaloL [Labetalol 100mg TAB] 100 mg PO Q8HR 30 Days #90 tab
[2022-01-22] MEDS: cloNIDine 0.2 MG TAB PO SCH (22:56)
--- NOTE | 2022-01-23 07:48 | Progress Note ---
Assessment and Plan Assessment and plan: HPI: This is is a 56-year-old male with no medical history who presented to the emergency department on 01/19 after being seen at outside clinic to have the sutures removed from his digit where they found severely elevated blood pressure. On arrival to the emergency department blood pressures recorded at 243/120 and patient was given p.o. clonidine, IV hydralazine, IV labetalol and was started on a Cardene drip. Patient was admitted to the hospital service with hypertensive urgency and newly diagnosed hypertension to the ICU with consults to [facility]. Hospital course to date: 01/20: Patient started on p.o. hydrochlorothiazide and amlodipine. As patient was given clonidine in the ED [facility] suggested to add clonidine 0.1 mg twice daily. Parameters were changed for Cardene to systolic goal of 180. Hemoglobin A1c pending. 01/21: Patient remains with elevated blood pressure systolic 184 diastolic around 111. We will add Diovan 160 mg twice daily to the patient's medication. Discussed with nursing staff to monitor his blood pressure. If persistently elevated may need to start him on hydralazine and discontinue the clonidine and use of as needed. I did give him counseling due to his tobacco use he reports understanding and will quit. 50 minutes counseling provided 01/22: Blood pressure control continues to be a challenge. 180/100 this Am. Addition of labetalol 100 mg p.o. 3 times daily. Catapres increased to 0.2 mg twice daily. If sufficient control obtained by afternoon will discharge patient. 01/23: Clear for discharge, medications transmitted. Blood pressure optimized. A&P: This is a 56-year-old male with no diagnosed hypertension admitted with hypertensive urgency Neuro: NAD -Reorientation as needed -Maintain sleep-wake cycle -As needed analgesia Cardiac: Hypertensive urgency, newly diagnosed hypertension, resistant hy pertension -CCM consulted, appreciate recommendation -Presented with a blood pressure of 243/120 -S/p IV Lopressor, p.o. amlodipine, IV hydralazine in the ED -s/p Cardene drip -Started on p.o. hydrochlorothiazide, amlodipine, labetalol, valsartan and clonidine -Blood pressure monitoring per protocol -Hydralazine as needed Respiratory: NAD, tobacco use disorder -Currently on room air -Supplemental oxygen as needed -SPO2 monitor per protocol -Pulmonary hygiene -Counseling provided GI: Obesity -Cardiac diet -Encouraged lifestyle and dietary modifications outpatient : NAD -Monitor intake and output -Renally dose medications -Avoid nephrotoxic medications ID: NAD -Monitor WBC and temperature curve Endo: NAD -Hemoglobin A1c 5.5 -Avoid hypoglycemia Heme: NAD -Trend CBC -Transfuse hemoglobin less than 7 -SCDs to BLE while in bed #Advance care planning Disease education conducted, care plan discussed, diagnoses discussed, prognosis discussed, patient is full code, patient acknowledges understanding and agree with care plan, +30 minutes. Time spent: +35 min CPT 48746 History Interval history: Patient seen evaluated bedside encounter. No acute complaints this AM. Discussed care plan for today and plan for discharge as BP control excellent. Hospitalist Physical - Physical exam Narrative exam: Physical Exam: VITAL SIGNS: Reviewed. GENERAL: The patient appears normally developed, Vital signs as documented. HEAD: No signs of head trauma. EYES: Pupils are equal. Extraocular motions intact. EARS: Hearing grossly intact. MOUTH: Oropharynx is normal. NECK: No adenopathy, no JVD. CHEST: Chest with clear breath sounds bilaterally. No wheezes, rales, or rhonchi. CARDIAC: Regular rate and rhythm. S1 and S2, without murmurs, gallops, or rubs. VASCULAR: No Edema. Peripheral pulses normal and equal in all extremities. ABDOMEN: Soft, non tender and non distended. No rebound or guarding, and no masses palpated. Bowel Sounds normal. MUSCULOSKELETAL: Good range of motion of all major joints. Extremities without clubbing, cyanosis or edema. NEUROLOGIC EXAM: Alert and oriented x 4. no focal sensory or strength deficits. PSYCHIATRIC: Mood normal. SKIN: detail exam as documented in skin assessment - Constitutional Vitals: Temp Pulse Resp BP Pulse Ox 98.0 F 76 16 102/51 93 01/23/22 03:55 01/23/22 05:25 01/23/22 03:55 01/23/22 05:25 01/23/22 03:55 General appearance: Present: no acute distress, well-nourished, obese HEART Score - HEART Score Troponin: Troponin T < 0.010 ng/mL (0.00-0.029) 01/19/22 17:23 Results - Labs CBC & Chem 7: 01/21/22 06:01 01/21/22 06:01 Labs: Laboratory Last Values WBC 7.1 K/mm3 (4.5-11.0) 01/21/22 06:01 RBC 4.85 M/mm3 (3.65-5.03) 01/21/22 06:01 Hgb 13.5 gm/dl (11.8-15.2) 01/21/22 06:01 Hct 40.4 % (35.5-45.6) 01/21/22 06:01 MCV 83 fl (84-94) L 01/21/22 06:01 MCH 28 pg (28-32) 01/21/22 06:01 MCHC 34 % (32-34) 01/21/22 06:01 RDW 16.4 % (13.2-15.2) H 01/21/22 06:01 Plt Count 296 K/mm3 (140-440) 01/21/22 06:01 Lymph % (Auto) 25.2 % (13.4-35.0) 01/21/22 06:01 Moca % (Auto) 11.1 % (0.0-7.3) H 01/21/22 06:01 Eos % (Auto) 1.8 % (0.0-4.3) 01/21/22 06:01 Baso % (Auto) 1.2 % (0.0-1.8) 01/21/22 06:01 Lymph # (Auto) 1.8 K/mm3 (1.2-5.4) 01/21/22 06:01 Moca # (Auto) 0.8 K/mm3 (0.0-0.8) 01/21/22 06:01 Eos # (Auto) 0.1 K/mm3 (0.0-0.4) 01/21/22 06:01 Baso # (Auto) 0.1 K/mm3 (0.0-0.1) 01/21/22 06:01 Seg Neutrophils % 60.7 % (40.0-70.0) 01/21/22 06:01 Seg Neutrophils # 4.3 K/mm3 (1.8-7.7) 01/21/22 06:01 Sodium 138 mmol/L (137-145) 01/21/22 06:01 Potassium 4.4 mmol/L (3.6-5.0) 01/21/22 06:01 Chloride 102.7 mmol/L (98-107) 01/21/22 06:01 Carbon Dioxide 24 mmol/L (22-30) 01/21/22 06:01 Anion Gap 16 mmol/L 01/21/22 06:01 BUN 16 mg/dL (9-20) 01/21/22 06:01 Creatinine 1.1 mg/dL (0.8-1.3) 01/21/22 06:01 Estimated GFR > 60 ml/min 01/21/22 06:01 BUN/Creatinine Ratio 15 % 01/21/22 06:01 Glucose 125 mg/dL (75-100) H 01/21/22 06:01 Hemoglobin A1c 5.5 % (4-6) 01/20/22 10:07 Calcium 9.6 mg/dL (8.4-10.2) 01/21/22 06:01 Total Bilirubin 0.20 mg/dL (0.1-1.2) 01/19/22 17:23 AST 19 units/L (5-40) 01/19/22 17:23 ALT 22 units/L (7-56) 01/19/22 17:23 Alkaline Phosphatase 160 units/L (35-129) H 01/19/22 17:23 Troponin T < 0.010 ng/mL (0.00-0.029) 01/19/22 17:23 Total Protein 7.2 g/dL (6.3-8.2) 01/19/22 17:23 Albumin 4.6 g/dL (3.9-5) 01/19/22 17:23 Albumin/Globulin Ratio 1.8 % 01/19/22 17:23 TSH 1.460 mlU/mL (0.270-4.200) 01/21/22 06:01 Castillo/IV: Voiding Method Toilet Active Medications - Current Medications Current Medications: Generic Name Dose Route Start Last Admin Trade Name Freq PRN Reason Stop Dose Admin Acetaminophen 650 mg 01/20/22 02:10 Acetaminophen 325 Mg Tab PO Q4H PRN Pain MILD(1-3)/Fever >100.5/ATKINSON Amlodipine Besylate 10 mg 01/20/22 10:00 01/22/22 10:08 Amlodipine 10 Mg Tab PO 10 mg QDAY ALLY Administration Clonidine HCl 0.2 mg 01/22/22 22:00 01/22/22 22:56 Clonidine 0.2 Mg Tab PO 0.2 mg Q12HR ALLY Administration Famotidine 20 mg 01/20/22 10:00 01/22/22 22:53 Famotidine 20 Mg Tab PO 20 mg BID ALLY Administration Hydralazine HCl 20 mg 01/20/22 07:37 01/21/22 17:46 Hydralazine 20 Mg/1 Ml Inj IV 20 mg Q4HR PRN Administration Hypertension Hydrochlorothiazide 25 mg 01/20/22 10:00 01/22/22 10:08 Hydrochlorothiazide 25 Mg Tab PO 25 mg QDAY ALLY Administration Labetalol HCl 100 mg 01/22/22 07:50 01/23/22 05:25 Labetalol 100 Mg Tab PO 100 mg Q8HR ALLY Administration Ondansetron HCl 4 mg 01/20/22 02:10 Ondansetron 4 Mg/2 Ml Inj IV Q8H PRN Nausea And Vomiting Sodium Chloride 10 ml 01/20/22 10:00 01/22/22 22:54 Sodium Chloride 0.9% 10 Ml Flush Syringe IV 10 ml BID ALLY Administration Sodium Chloride 10 ml 01/20/22 02:10 01/21/22 06:37 Sodium Chloride 0.9% 10 Ml Flush Syringe IV 10 ml PRN PRN Administration LINE FLUSH Valsartan 160 mg 01/21/22 10:00 01/22/22 22:53 Valsartan 160mg Tab PO 160 mg BID ALLY Administration
[2022-01-23] MEDS: VALSARTAN 160MG TAB PO SCH (09:51)
[2022-01-23] MEDS: cloNIDine 0.2 MG TAB PO SCH (09:52)
[2022-01-23] MEDS: FAMOTIDINE 20 MG TAB PO SCH (09:52)
[2022-01-23] MEDS: hydroCHLOROthiazide 25 MG TAB PO SCH (09:52)
[2022-01-23] MEDS: amLODIPine 10 MG TAB PO SCH (09:52)
[2022-01-23 09:53] VITALS: BP 137/84
== END 2022-01-23 11:02 | disposition home or self-care (01) | DRG 305 ==
LOC: ED 16:26 → CC1 01-20 02:10 → 3A 01-20 22:08
PROVIDERS: ADMIT Hospitalist; ATTEND Internal Medicine
DX: I16.0 Hypertensive urgency (principal); E66.9 Obesity, unspecified; I10 Essential (primary) hypertension; Z68.36 Body mass index [BMI] 36.0-36.9, adult; Z82.49 Family history of ischemic heart disease and other diseases of the circulatory system
CPT/HCPCS: 36415; 80048; 80053; 83036; 84443; 84484; 85025; 93005; 96374; 96375; 99285; G0378; J3490; J0360; J7050